=== PATIENT | male | born 1960 | race Caucasian/White ===

== ENCOUNTER 2019-05-04 21:20 | Emergency (ER) | payer MEDICAID ==
[~2019-05-04] VITALS: Ht 170.2 cm; Wt 97.7 kg
[2019-05-04 21:29] VITALS: Ht 170.2 cm; Wt 97.7 kg
[2019-05-04 22:12] LABS: APPEARANCE CLEAR (CLEAR); BILIRUBIN NEGATIVE (NEGATIVE); COLOR YELLOW (YELLOW); GLUCOSE NEGATIVE (NEGATIVE); KETONE NEGATIVE (NEGATIVE); NITRITE NEGATIVE (NEGATIVE); PROTEIN NEGATIVE (NEGATIVE); UROBILINOGEN NORMAL (NORMAL)
[2019-05-04 22:17] LABS: CALC OSMOLALITY 281 mosm/kg (275-300); CALCIUM 8.3 mg/dL (8.5-10.1); CARBON DIOXIDE 29.5 mmol/L (21.0-32.0); CHLORIDE - SERUM 105 mmol/L (98-107); CREATININE - SERUM 1.1 mg/dL (0.6-1.3); GLUCOSE 104 mg/dL (74-106); POTASSIUM - SERUM 4.1 mmol/L (3.5-5.1); SODIUM 141 mmol/L (136-145); UREA NITROGEN 15 mg/dL (7-18); eGFR NON AFRICAN AMERICAN 73 mL/min (90-120)
[2019-05-04 22:26] LABS: ALBUMIN 3.5 g/dL (3.4-5.0); ALKALINE PHOSPHATASE 123 U/L (46-116); ALT (SGPT) 31 U/L (10-68); AMYLASE - SERUM 24 U/L (25-115); BILIRUBIN - TOTAL 0.42 mg/dL (0.2-1.3); LIPASE 131 U/L (73-393); PROTEIN - SERUM 7.1 g/dL (6.4-8.2); TROPONIN-I < 0.017 ng/mL (0.000-0.060)
[2019-05-04 22:47] LABS: BASOPHILS 0.3 % (0-2); EOSINOPHILS 2.8 % (0-7); HEMATOCRIT 45.6 % (42.0-54.0); IMMATURE GRANULOCYTES 0.3 % (0-5); LYMPHOCYTES 33.1 % (15-50); MCH 28.8 pg (26.0-34.0); MCHC 32.9 g/dL (31.0-37.0); MCV 87.5 fL (80.0-100.0); MEAN PLATELET VOLUME 10.5 fL (7.4-10.4); MONOCYTES 12.4 % (2-11); NEUTROPHILS 51.1 % (40-80); PLATELET COUNT 155 10x3/uL (130-400); RBC 5.21 10x6/uL (4.20-6.10); RDW 13.1 % (11.5-14.5)
[2019-05-04 23:45] VITALS: BP 155/88
== END 2019-05-04 23:46 | disposition home or self-care (01) ==
LOC: D.ER 21:20
PROVIDERS: Family Medicine
DX: R10.9 Unspecified abdominal pain (principal)